=== PATIENT | male | born 1940 | race Caucasian/White ===

== ENCOUNTER 2016-12-17 13:45 | Inpatient (IN) | payer MEDICARE, MEDICAID ==
[~2016-12-17] VITALS: Ht 172.7 cm; Wt 77.4 kg
[~2016-12-17 13:45] MED LIST: ALBU2.5V NPPB; FLUT1DIS3 INH; HYDR-3138 PO; LISI-167 PO; METO25TA35 PO; MULT-658 PO; NICO1PAT5 TD; POLY17PO5 PO; PRED20TA PO; TIOT18CA INH; WARF3TAB7 PO-COUM
[2016-12-17] MEDS ORDERED: MORPHINE SULFATE 4 MG/ML, 1ML ONE (15:27)
[2016-12-17] MEDS ORDERED: ONDANSETRON 2MG/ML, 2ML ONE (15:27)
[2016-12-17] MEDS ORDERED: MORPHINE SULFATE 4 MG/ML, 1ML IVPush PRN (15:30)
[2016-12-17] MEDS ORDERED: SODIUM CHLORIDE FLUSH 10ML SYR IVF ONE (15:30)
[2016-12-17] MEDS ORDERED: ONDANSETRON 2MG/ML, 2ML IVPush ONE (15:30)
[2016-12-17 15:51] LABS: BLOOD UREA NITROGEN 22 mg/dL (7-18)
[2016-12-17 15:57] LABS: ASPARTATE AMINO TRANSFERASE 10 U/L (15-37)
[2016-12-17 15:59] LABS: IS PT STATUS REG ER OR PRE ER? YES
[2016-12-17] MEDS ORDERED: ACETAMINOPHEN 325 MG TABLET PO PRN (20:00)
[2016-12-17] MEDS ORDERED: PROCHLORPERAZINE 5 MG/ML, 2ML IVPush PRN (20:00)
[2016-12-17] MEDS ORDERED: TRAZODONE 50MG TABLET PO PRN (20:00)
[2016-12-17] MEDS ORDERED: BISACODYL 10 MG SUPP PR PRN (20:00)
[2016-12-17] MEDS ORDERED: LABETALOL 5MG/ML, 20ML IVPush PRN (20:00)
[2016-12-17] MEDS ORDERED: WARFARIN 3 MG TABLET PO-COUM ONE (20:30)
[2016-12-17] MEDS ORDERED: ALBUTEROL SULFATE 2.5 MG/3 ML NPPB PRN (20:30)
[2016-12-17] MEDS: IPRATROPIUM 0.5 MG/2.5 ML INHA NPPB SCH (23:00)
[2016-12-17 23:44] VITALS: BP 151/68
[2016-12-18] MEDS: SODIUM CHLORIDE 0.9% 1,000 ML IV SCH ×2 (00:31→12:02)
[2016-12-18] MEDS: ENOXAPARIN 60 MG/0.6 ML SQ SCH ×3 (00:31→21:49)
[2016-12-18 01:57] VITALS: BP 147/71
[2016-12-18 04:00] LABS: ASPARTATE AMINO TRANSFERASE 7 U/L (15-37); BLOOD UREA NITROGEN 16 mg/dL (7-18)
[2016-12-18] MEDS: IPRATROPIUM 0.5 MG/2.5 ML INHA NPPB SCH ×3 (05:00→19:49)
[2016-12-18] MEDS: METOPROLOL TARTRATE 25 MG TABLET PO SCH ×2 (05:18→18:41)
[2016-12-18 07:50] VITALS: BP 123/69
[2016-12-18] MEDS: LISINOPRIL 10 MG TABLET PO SCH (08:43)
[2016-12-18] MEDS: FLUTICASONE/VILANTEROL 100-25MCG/INH INH SCH (08:43)
[2016-12-18] MEDS: MULTIVITAMIN 1 TABLET PO SCH (08:43)
[2016-12-18] MEDS ORDERED: IPRATROPIUM 0.5 MG/2.5 ML INHA ONE (08:54)
[2016-12-18] MEDS: morphine SULFATE 10 MG/ML, 1ML IVPush PRN (11:59)
[2016-12-18 12:34] VITALS: BP 102/50
[2016-12-18] MEDS ORDERED: OMNIPAQUE 350 MG/ML, 100ML BOTTLE ONE (17:18)
[2016-12-18] MEDS ORDERED: WARFARIN 3 MG TABLET PO-COUM SCH (18:00)
[2016-12-18] MEDS ORDERED: WARFARIN 7.5 MG TABLET PO-COUM SCH (18:00)
[2016-12-18 18:42] VITALS: BP 110/63
[2016-12-19] MEDS: SODIUM CHLORIDE 0.9% 1,000 ML IV SCH ×2 (01:17→15:39)
[2016-12-19 01:27] VITALS: BP 105/60
[2016-12-19] MEDS: METOPROLOL TARTRATE 25 MG TABLET PO SCH ×2 (06:02→18:11)
[2016-12-19 06:40] VITALS: BP 127/57
[2016-12-19] MEDS: FLUTICASONE/VILANTEROL 100-25MCG/INH INH SCH (09:27)
[2016-12-19] MEDS: LISINOPRIL 10 MG TABLET PO SCH (09:28)
[2016-12-19] MEDS: MULTIVITAMIN 1 TABLET PO SCH (09:28)
[2016-12-19] MEDS: DOCUSATE 100 MG CAPSULE PO PRN (09:35)
[2016-12-19] MEDS: POLYETHYLENE GLYCOL 17 GM PACKET PO PRN (09:35)
[2016-12-19] MEDS: IPRATROPIUM 0.5 MG/2.5 ML INHA NPPB SCH ×2 (10:00→19:08)
[2016-12-19] MEDS: ENOXAPARIN 60 MG/0.6 ML SQ SCH ×2 (11:19→22:00)
[2016-12-19 12:41] VITALS: BP 123/67
[2016-12-19] MEDS: HYDROcodone/APAP 5/325 TABLET PO PRN (13:07)
[2016-12-19] MEDS ORDERED: WARFARIN 2 MG TABLET PO-COUM ONE (18:00)
[2016-12-19 18:10] VITALS: BP 138/65
[2016-12-19] MEDS: morphine SULFATE 10 MG/ML, 1ML IVPush PRN ×2 (18:11→22:00)
[2016-12-19 19:28] VITALS: BP 145/72
[2016-12-20 01:34] VITALS: BP 146/72
[2016-12-20] MEDS: morphine SULFATE 10 MG/ML, 1ML IVPush PRN (03:45)
[2016-12-20] MEDS: SODIUM CHLORIDE 0.9% 1,000 ML IV SCH ×2 (03:45→17:40)
[2016-12-20] MEDS: HYDROcodone/APAP 5/325 TABLET PO PRN ×2 (05:48→17:46)
[2016-12-20] MEDS: METOPROLOL TARTRATE 25 MG TABLET PO SCH ×2 (05:48→17:42)
[2016-12-20 07:42] VITALS: BP 140/76
[2016-12-20] MEDS: FLUTICASONE/VILANTEROL 100-25MCG/INH INH SCH (08:35)
[2016-12-20] MEDS: DOCUSATE 100 MG CAPSULE PO PRN (08:35)
[2016-12-20] MEDS: LISINOPRIL 10 MG TABLET PO SCH (08:35)
[2016-12-20] MEDS: MULTIVITAMIN 1 TABLET PO SCH (08:35)
[2016-12-20] MEDS: POLYETHYLENE GLYCOL 17 GM PACKET PO PRN (08:36)
[2016-12-20] MEDS: IPRATROPIUM 0.5 MG/2.5 ML INHA NPPB SCH (09:00)
[2016-12-20] MEDS: ENOXAPARIN 60 MG/0.6 ML SQ SCH ×2 (11:00→23:20)
[2016-12-20 16:18] VITALS: BP 126/59
[2016-12-20 17:42] VITALS: BP 132/74
[2016-12-20 19:20] VITALS: BP 129/58
[2016-12-21 02:31] VITALS: BP 146/66
[2016-12-21] MEDS: SODIUM CHLORIDE 0.9% 1,000 ML IV SCH (05:37)
[2016-12-21] MEDS: METOPROLOL TARTRATE 25 MG TABLET PO SCH (05:37)
[2016-12-21] MEDS: HYDROcodone/APAP 5/325 TABLET PO PRN ×2 (05:41→14:58)
[2016-12-21 06:35] VITALS: BP 138/64
[2016-12-21] MEDS ORDERED: IPRATROPIUM 0.5 MG/2.5 ML INHA NPPB PRN (09:00)
[2016-12-21] MEDS: ENOXAPARIN 60 MG/0.6 ML SQ SCH (09:15)
[2016-12-21] MEDS: MULTIVITAMIN 1 TABLET PO SCH (09:15)
[2016-12-21] MEDS: LISINOPRIL 10 MG TABLET PO SCH (09:15)
[2016-12-21] MEDS: FLUTICASONE/VILANTEROL 100-25MCG/INH INH SCH (09:15)
[2016-12-21] MEDS ORDERED: Miscellaneous XX (12:41)
[2016-12-21] MEDS ORDERED: DOCU-30 PO (12:41)
[2016-12-21 13:26] VITALS: BP 109/62
== END 2016-12-21 16:53 | DRG 181 ==
LOC: ED 15:49 → MERGE 15:49 → EDIP 18:25 → 3NW 19:17
PROVIDERS: ADMIT Internal Medicine; ATTEND Internal Medicine
DX: C34.90 Malignant neoplasm of unspecified part of unspecified bronchus or lung (principal); C64.9 Malignant neoplasm of unspecified kidney, except renal pelvis; D68.69 Other thrombophilia; E44.0 Moderate protein-calorie malnutrition; R62.7 Adult failure to thrive; D64.9 Anemia, unspecified; M19.90 Unspecified osteoarthritis, unspecified site; Z68.25 Body mass index [BMI] 25.0-25.9, adult; E88.09 Other disorders of plasma-protein metabolism, not elsewhere classified; F12.10 Cannabis abuse, uncomplicated; I10 Essential (primary) hypertension; J44.9 Chronic obstructive pulmonary disease, unspecified; N20.0 Calculus of kidney; N32.89 Other specified disorders of bladder; Z79.01 Long term (current) use of anticoagulants; Z83.3 Family history of diabetes mellitus; Z85.118 Personal history of other malignant neoplasm of bronchus and lung; Z85.528 Personal history of other malignant neoplasm of kidney; Z86.711 Personal history of pulmonary embolism; Z87.891 Personal history of nicotine dependence; Z91.14 Patient's other noncompliance with medication regimen; Z91.19 Patient's noncompliance with other medical treatment and regimen; M51.17 Intervertebral disc disorders with radiculopathy, lumbosacral region; Z66 Do not resuscitate
CPT/HCPCS: 36415; 70551; 71010; 71275; 72131; 74177; 80053; 81001; 83735; 83880; 84439; 84443; 84484; 85025; 85610; 85730; 93005; 94640; 96374; 96375; J1650; J2405; J7644; Q9967; J2270; J7030